=== PATIENT | female | born 1935 | race Caucasian/White ===

== ENCOUNTER 2017-04-10 08:30 | Day surgery (SDC) | payer OTHER ==
[~2017-04-10] VITALS: Ht 162.6 cm; Wt 60.4 kg
[~2017-04-10 08:30] MED LIST: ADULT LOW DOSE81 M1 PO; CALCIUM CITRAT1 EAC5 PO; CALCIUM PO; FOSAMAX70 MG PO; LOPRESSOR50 MG PO; NORVASC2.5 MG PO; PRADAXA150 MG PO; [UNRECOGNIZED DRUG - OTHER] PO
[2017-04-10 09:04] VITALS: BP 177/72
[2017-04-10 09:25] LABS: INTER. NORMALIZED RATIO 1.1; PROTHROMBIN TIME 11.9 SEC (10.2-12.9)
[2017-04-10 09:29] LABS: PTT 30.2 SEC (25-37)
[2017-04-10] MEDS ORDERED: NORCO 5/3251 TABLET PO (15:00)
[2017-04-10 16:05] VITALS: BP 118/59
[2017-04-10 17:10] VITALS: BP 110/72
== END 2017-04-10 17:39 | disposition home or self-care (01) ==
LOC: SDC 08:30 → NUC 09:30 → SDC 17:39
PROVIDERS: Surgery
DX: C50.112 Malignant neoplasm of central portion of left female breast (principal); Z17.0 Estrogen receptor positive status [ER+]; Z88.2 Allergy status to sulfonamides; I10 Essential (primary) hypertension; I48.91 Unspecified atrial fibrillation; Z79.01 Long term (current) use of anticoagulants; Z95.0 Presence of cardiac pacemaker; M85.80 Other specified disorders of bone density and structure, unspecified site; I27.2 Other secondary pulmonary hypertension
CPT/HCPCS: 78195; 78999; 85610; 85730; A9541; J0131; J0690; J1100; J2250; J2405; J3010; Q0175; S0020